=== PATIENT | female | born 1965 | race Caucasian/White ===

== ENCOUNTER 2023-02-05 13:52 | Emergency (ER) | payer BC, SELFPAY ==
--- NOTE | ~2023-02-05 | XR_ITS ---
EXAMINATION: XR chest 2V DATE: 02/05/2023 14:33 INDICATION: Chest pain TECHNIQUE: AP and lateral views of the chest are obtained. COMPARISON: 05/31/2007 FINDINGS: The lungs are free of acute opacities. No pleural effusion or pneumothorax. The cardiomedia stinal silhouette is normal. There is mild thoracic spondylosis. Changes of anterior fusion procedure are noted in the lower cervical spine. IMPRESSION: 1. No acute cardiopulmonary abnormality. Reviewed, dictated and finalized at location B. OGRAPHIC SPECIALIST
--- NOTE | 2023-02-05 13:53 | ECG_ITS ---
Measurements Intervals [place] Rate: 60 P: 75 [place]: 165 QRS: -9 QRSD: 107 T: 47 QT: 417 QTc: 420 Interpretive Statements SINUS RHYTHM LEFT AXIS DEVIATION BORDERLINE ECG NO PREVIOUS ECG AVAILABLE FOR COMPARISON Electronically Signed On 02-05-2023 14:17:28 ROUTE VENDING MACHINE SERVICER by Moises Sandoval M.D.
[2023-02-05 14:05] VITALS: BP 147/78; PULSE 64; RESP 16; TEMP 36.7; O2SAT 100
--- NOTE | 2023-02-05 14:13 | ED.CHESTPAIN ---
HPI - Chest Pain General Chief Complaint: Chest Pain Stated Complaint: chest pain Time Seen by Provider: 02/05/23 13:57 Source: patient, RN notes reviewed and old records reviewed Mode of arrival: ambulatory Limitations: no limitations History of Present Illness HPI narrative: This is a 57 year old female who presents for evaluation of chest pain. PAtient states she developed left anterior chest pain at 10 15. She describes pain as pressure that will become sharp shooting down her arm. This pain is intermittent and she denies pain. She reports shortness of breath at time of pain. She reports pain is worse with breath and movement. She reports heavy lifting recently so may be strain Related Data Allergies Allergy/AdvReac Type Severity Reaction Status Date / Time cat dander Allergy Intermediate sob Verified 02/05/23 13:55 Review of Systems Constitutional: Constitutional: Denies weakness Cardiovascular: Cardiovascular: Reports chest pain, Denies syncope, Denies rapid heart rate, Denies irregular heart rhythm, Denies leg edema, Reports radiating jaw, neck or arm pain and Reports dyspnea Respiratory: Respiratory: Denies chest congestion, Denies hemoptysis, Denies excessive phlegm production and Denies dyspnea Gastrointestinal: Gastrointestinal: Denies abdominal pain, Denies hematochezia, Denies diarrhea and Denies vomiting Genitourinary: Genitourinary: Denies hematuria and Denies dysuria Musculoskeletal: Musculoskeletal: Denies joint swelling, Denies loss of height and Denies muscle weakness Neurologic: Denies syncope, Denies focal weakness and Denies weakness PMFSH Past Medical History Medical History Cervical spondylosis with myelopathy Compensated hypothyroidism Uterine fibroid Surgical History Surgical History History of partial hysterectomy S/P cervical spinal fusion S/P lumbar fusion Family History Family History Father Alcohol abuse Thyroid disorder Mother Thyroid disorder Heart disease Depression Diabetes mellitus Sibling Diabetes mellitus Depression Heart disease Social History Social History (Updated 02/05/23 @ 14:14 by Merlyn Palacio MD) Social History: Single , Smoking packs per day: 1 Smoking cigarettes per day: 20.0 Years smoked: 30 Smoking pack-years: 30.00 Smoking status: Former smoker Tobacco type: cigarettes Second hand tobacco smoke exposure: Yes Smoking end date: 09/22/22 Alcohol intake: current Drinks per week: 7 Substance use: never Substance use type: does not use Lack of Transportation: No Lack of Food: Never True Current Housing: I Have Housing Concerned About Future Housing: No Difficulty Paying Gas/Electric Bills: No Difficulty Paying for Meds: No Currently Unemployed: No Education: Decline to Answer Difficulty w/ Childcare or Family Care: No Living arrangements: with family Additional living arrangements comments: Pt lives with her boyfriend. Occupation/Education: occupation Gender identity (if verbalized by the patient): Female Sexual Orientation (if Verbalized by the Patient): Straight or Heterosexual Spiritual care concerns: No Exam Const: General: no acute distress and alert Nutritional Appearance: well nourished Orientation/consciousness: patient oriented x3 Limitations: no limitations HENMT: Head: normal to inspection Eyes: EOM: EOMs intact bilaterally Chest: Chest palpation & inspection: normal inspection of the chest Resp: Effort & Inspection: normal respiratory effort Auscultation: clear to auscultation bilaterally Cardio: Rate: regular rate Rhythm: regular rhythm Heart sounds: no murmurs GI: Auscultation: normal bowel sounds Back/Spine/Pelvis: Back: no CVA tenderness Skin: General skin exam: normal color Adrián
[2023-02-05 14:17] LABS: Basophils Absolute Auto 0.1 K/mm3 (0.0-0.1); Basophils Percent Auto 0.6 % (0.2-1.2); Eosinophils Absolute Auto 0.2 K/mm3 (0-0.3); Eosinophils Percent Auto 2.1 % (0-4.4); Hematocrit 39.1 % (37.0-47.0); Hemoglobin 12.9 g/dL (12.0-15.0); Immature Granulocyte Absolute 0.03 K/mm3 (0.00-0.031); Immature Granulocyte Percent A 0.4 % (0-0.5); Lymphocytes Absolute Auto 2.29 K/mm3 (0.9-3.2); Lymphocytes Percent Auto 29.5 % (18.3-44.2); Mean Corpuscular Hemoglobin 31.2 pg (26-34); Mean Corpuscular Volume 94.4 fl (80-100); Monocytes Absolute Auto 0.7 K/mm3 (0.1-0.6); Monocytes Percent Auto 9.5 % (2.6-8.5); Neutrophils Absolute Auto 4.5 K/mm3 (1.3-6.7); Neutrophils Percent Auto 57.9 % (45.5-73.1); Platelet Count Result 210 k/mm3 (150-375); Red Blood Count 4.14 M/mm3 (4.2-5.4); Red Cell Distribution Width 12.5 % (11.5-14.5); White Blood Count 7.8 K/mm3 (4.5-10.0)
[2023-02-05 14:26] LABS: INR 0.9; Potassium 3.8 mmol/L (3.4-5.0); Prothrombin Time 12.5 Seconds (11.1-14.7)
[2023-02-05 14:27] LABS: Partial Thromboplastin Time 25.3 SECONDS (22.3-36.8)
[2023-02-05 14:31] LABS: Alanine Aminotransferase 22 U/L (6-35); Albumin Level 4.2 g/dL (3.5-5.1); Alkaline Phosphatase 80 U/L (38-126); Anion Gap 8 mmol/L (8-16); Aspartate Amino Transferase 30 U/L (14-36); Bilirubin,Total 0.5 mg/dL (0.2-1.3); Blood Urea Nitrogen 24 mg/dL (7-17); Calcium 9.1 mg/dL (8.4-10.2); Carbon Dioxide 24 mmol/L (22-30); Chloride 104 mmol/L (98-107); Estimated CRCL calculation 91 ml/min; Estimated Glomerular Filt Rate > 60; Glucose 107 mg/dL (65-110); Lipase 87 U/L (23-300); Sodium 136 mmol/L (137-145)
[2023-02-05 14:38] LABS: Troponin I < 0.012 ng/mL (0.000-0.034)
[2023-02-05 14:56] LABS: D Dimer 0.29 ug/mL (<0.48)
[2023-02-05 15:27] VITALS: BP 122/71; PULSE 62; RESP 16; TEMP 36.7; O2SAT 100
[2023-02-05 15:31] VITALS: BP 118/75; PULSE 61; RESP 13
[2023-02-05 16:30] VITALS: BP 120/74; PULSE 63; RESP 16; TEMP 36.6; O2SAT 100
[2023-02-05] MEDS: KETOROLAC 30 MG/ML VIAL (*BKC) IV PUSH (16:42)
--- NOTE | 2023-02-05 17:02 | ECG_ITS ---
Measurements Intervals [place] Rate: 62 P: 61 [place]: 171 QRS: -33 QRSD: 111 T: 22 QT: 426 QTc: 435 Interpretive Statements SINUS RHYTHM MARKED LEFT AXIS DEVIATION [QRS AXIS < -30] BORDERLINE ECG COMPARED TO ECG 02/05/2023 14:02:05 NO SIGNIFICANT CHANGE Electronically Signed On 02-07-2023 8:54:06 TEAMCENTER CONSULTANT by Moises Sandoval M.D.
[2023-02-05 17:30] VITALS: BP 124/80; PULSE 80; RESP 16; TEMP 36.6; O2SAT 100
[2023-02-05 17:31] LABS: Troponin I < 0.012 ng/mL (0.000-0.034)
[2023-02-05 18:17] VITALS: BP 124/70; PULSE 78; RESP 16; TEMP 36.6; O2SAT 100
== END 2023-02-05 18:21 | disposition home or self-care (01) ==
PROVIDERS: Emergency Medicine; Emergency Provider General Practice; PCP Family Medicine
DX: R07.89 Other chest pain (principal); Z87.891 Personal history of nicotine dependence
CPT/HCPCS: 36415; 71046; 80053; 83690; 84484; 85025; 85380; 85610; 85730; 93005; 96374; 99284; J1885

== ENCOUNTER 2023-07-05 07:43 | Outpatient (CLI) | payer BC, SELFPAY ==
--- NOTE | ~2023-07-05 | CT_ITS ---
EXAMINATION: CT lung screening DATE: 07/05/2023 08:14 INDICATION: Z87.891 - Personal history of nicotine dependence TECHNIQUE: Computed tomography (CT) of the chest was performed without intravenous contrast. Addition al 3D reconstructions utilizing coronal maximum intensity projection (MIP) were performed. Automated exposure control and iterative reconstruction technique were employed. The dose-length product was 82 .75 mGy-cm. COMPARISON: None FINDINGS: There are a few scattered small pulmonary nodules, the largest a 6 x 4 mm flat lenticular likely intr afissural lymph node along the right minor fissure and the remainder all measuring <4 mm. No pneumoni a, pulmonary edema or pleural effusion. Heart size is normal. No pericardial effusion. Thoracic aorta is normal in caliber. No pathologically enlarged thoracic lymphadenopathy. Visualized upper abdomen is unremarkable. Mild to moderate thoracic spondylosis. Partially visualized plate and screw fixation for lower cervical anterior spinal fusion. IMPRESSION: 1. . Lung-RADS category 2: Benign appearance or behavior. Continue annual screening with noncontrast low-dose chest CT in 12 months. Reviewed, dictated and finalized at location B. IMPRESSION: 1. . Lung-RADS category 2: Benign appearance or behavior. Continue annual scree jeussita with noncontrast low-dose chest CT in 12 months.
--- NOTE | 2023-07-05 13:59 | WPDSIXMINUTE ---
Six Minute Walk Procedure Procedure Performed Pulmonary Stress Test (6 min walk) Six Minute Walk Six Minute Walk: This is a 6 minute walk test. The test was performed and interpreted in accordance with the 2014 ERS/ATS task force guidelines. Findings: The patient's resting room air oxygen saturation measured by pulse oximetry was 97% and heart rate was 62 bpm. Patient ambulated for 427 meters and oxygen saturation remained 94 to 97%. Heart rate at the end of the study was 92 bpm. The patient did not qualify for supplemental oxygen at rest or with ambulation. There are no prior studies for comparison.
--- NOTE | 2023-07-05 14:00 | WPDPFTINT ---
PFT Procedure Performed PFT Procedure Performed Spirometry with Pre/Post Bronchodilator Plethysmography (Lung Vol) Diffusing Cap (DLCO) Flow Vol Loop PFT Interpretation This is a pulmonary function test with pre and post-bronchodilator spirometry, plethysmography and diffusing capacity. The test was performed and results interpreted in accordance with the 2019 and 2005 ATS/ERS Task Force guidelines respectively using the Global Lung Function Initiative-2012 reference equations. Patient demonstrated good effort and cooperation. Reproducibility criteria were met. The quality of the pre bronchodilator spirometry maneuver was Grade A and post bronchodilator spirometry maneuver was Grade A. Findings: Spirometry: There is decreased maximal expiratory airflow at low lung volumes with concave expiratory flow tracing. The contour the inspiratory flow tracing is normal. The pre bronchodilator FVC is 2.95 L, 86% predicted. The pre bronchodilator FEV1 is 1.89 L, 69% predicted. The pre bronchodilator FEV1: FVC ratio is 64%. The post bronchodilator FVC is 3.00 L, representing a 2% increase. The post bronchodilator FEV1 is 2.02 L, representing a 7% increase. The post bronchodilator FEV1: FVC ratio is 68%. Plethysmography: The total lung capacity is 5.37 L, 103% predicted. The functional residual capacity is 3.13 L, 107% predicted. The residual volume is 2.42 L, 125% predicted. Diffusing capacity: The diffusing capacity unadjusted for hemoglobin and carboxyhemoglobin is 22.1, 98% predicted. The diffusing capacity adjusted for alveolar volume is 4.45, 99% predicted. Impression: There is a moderate obstructive abnormality. There is no significant improvement after inhaling a single dose of albuterol. The lung volumes are normal. The diffusing capacity is normal. There are no prior studies for comparison
== END 2023-07-05 07:44 | disposition home or self-care (01) ==
PROVIDERS: PCP Family Medicine; Visit Provider Physician Assistant
DX: R06.02 Shortness of breath (principal); Z87.891 Personal history of nicotine dependence; R94.2 Abnormal results of pulmonary function studies
CPT/HCPCS: 71271; 94060; 94618; 94726; 94729